=== PATIENT | male | born 1970 | race Caucasian/White ===

== ENCOUNTER 2021-01-24 14:32 | Emergency (ER) | payer MEDICAID ==
[~2021-01-24] VITALS: Ht 177.8 cm; Wt 85.0 kg
[2021-01-24 17:05] VITALS: BP 140/95
== END 2021-01-24 17:06 | disposition home or self-care (01) ==
LOC: ER 15:53
DX: R06.00 Dyspnea, unspecified (principal); Z90.49 Acquired absence of other specified parts of digestive tract
CPT/HCPCS: 71045; 93005; 99283

== ENCOUNTER 2021-08-26 09:53 | Emergency (ER) | payer MEDICAID ==
[~2021-08-26] VITALS: Ht 175.3 cm; Wt 77.0 kg
[2021-08-26 09:56] VITALS: BP 140/81
[2021-08-26] MEDS ORDERED: IBUP-2437 PO (09:59)
[2021-08-26] MEDS ORDERED: AMOX-424 MT (10:37)
[2021-08-26] MEDS ORDERED: AMOXICILLIN/POTASSIUM CLAVULANATE 875/125MG TAB PO ONE (10:45)
== END 2021-08-26 11:11 | disposition home or self-care (01) ==
LOC: ER 09:53
DX: K02.9 Dental caries, unspecified (principal); R03.0 Elevated blood-pressure reading, without diagnosis of hypertension
CPT/HCPCS: 99283

== ENCOUNTER 2021-08-29 10:39 | Emergency (ER) | payer MEDICAID ==
[~2021-08-29] VITALS: Ht 170.2 cm; Wt 77.0 kg
[~2021-08-29 10:39] MED LIST: AMOX-424 MT; IBUP-2437 PO
[2021-08-29] MEDS ORDERED: HYDR-4001 MT (10:56)
[2021-08-29] MEDS ORDERED: IBUP-2030 MT (10:56)
[2021-08-29] MEDS ORDERED: IBUPROFEN 800MG TABLET PO ONE (11:00)
[2021-08-29 11:15] VITALS: BP 128/84
== END 2021-08-29 11:20 | disposition home or self-care (01) ==
LOC: ER 10:39
DX: K08.89 Other specified disorders of teeth and supporting structures (principal); Z90.49 Acquired absence of other specified parts of digestive tract
CPT/HCPCS: 99283

== ENCOUNTER 2022-09-10 09:54 | Emergency (ER) | payer MEDICAID ==
[~2022-09-10] VITALS: Ht 175.3 cm; Wt 73.0 kg
[~2022-09-10 09:54] MED LIST changes: +HYDR-4001 MT; +IBUP-2030 MT
[2022-09-10 10:04] VITALS: BP 149/99
[2022-09-10] MEDS ORDERED: CLAR10 MT (11:57)
[2022-09-10] MEDS ORDERED: DEXA6TAB MT (11:57)
[2022-09-10] MEDS ORDERED: POLY10DR EACHEYE (11:57)
[2022-09-10] MEDS ORDERED: CEPH500T MT (11:57)
[2022-09-10] MEDS ORDERED: SULF1TAB47 MT (11:57)
[2022-09-10] MEDS ORDERED: DEXAMETHASONE 4MG/ML 1ML VIAL IM ONE (12:00)
== END 2022-09-10 12:13 | disposition home or self-care (01) ==
LOC: ER 09:54
DX: H10.9 Unspecified conjunctivitis (principal)
CPT/HCPCS: 96372; 99283; J1100